=== PATIENT | male | born 1955 | race American Indian/Alaskan Native ===

== ENCOUNTER 2022-05-14 14:33 | Outpatient (CLI) | payer BC ==
[2022-05-14 16:22] LABS: Bilirubin,Urine NEG (Negative); Blood,Urine SM (Negative); Color,Urine Yellow (Yellow); Protein,Urine <15 mg/dL mg/dL (Negative); Urobilinogen,Urine < 2.0 mg/dL (<2.0)
[2022-05-14 16:23] LABS: WBC,Urine < 1.0 /HPF (0.0-6.0)
[2022-05-14 16:43] LABS: Chol/HDL Ratio 2.84 %
== END 2022-05-14 14:34 | disposition home or self-care (01) ==
LOC: LABHHL 14:33
PROVIDERS: ATTEND Internal Medicine
DX: E11.65 Type 2 diabetes mellitus with hyperglycemia (principal); E78.5 Hyperlipidemia, unspecified; R39.11 Hesitancy of micturition; E87.6 Hypokalemia
CPT/HCPCS: 36415; 80061; 81001; 83036; 84443